=== PATIENT | female | born 1990 | race Two or more races ===

== ENCOUNTER 2025-06-15 20:01 | Emergency (ER) | payer MEDICAID, OTHER ==
[~2025-06-15] VITALS: Ht 167.6 cm; Wt 104.0 kg
[2025-06-15] MEDS ORDERED: IBUP-1456 PO (23:37)
[2025-06-15] MEDS ORDERED: AUG875T PO (23:37)
--- NOTE | 2025-06-15 23:40 | ED.PDOC ---
Eye-HPI HPI Comments C/O 08/21 PAIN TO LOWER LEFT SIDE OF MOUTH D/T BROKEN TOOTH AND POSSIBLE INFECTION. PT A&OX4, VSS, RR EVEN AND UNLABORED ON RA. Chief Complaint: Tooth Pain Time Seen by MD: 20:08 Reviewed Notes: Nurses Notes, Medications, Allergies Allergies: Coded Allergies: NO KNOWN ALLERGIES (Unverified , 06/15/25) Information Source: Patient Mode of Arrival: Ambulatory Constitutional: denies: chills, diaphoresis, fatigue, fever, malaise, sweats, weakness, others EENTM: reports: others (LEFT LOWER TOOTH DENTAL PAIN); denies: blurred vision, double vision, ear bleeding, ear discharge, ear drainage, ear pain, ear ringing, eye pain, eye redness, hearing loss, mouth pain, mouth swelling, nasal discharge, nose bleeding, nose congestion, nose pain, photophobia, tearing, th roat pain, throat swelling, voice changes Respiratory: denies: cough, hemoptysis, orthopnea, SOB at rest, shortness of breath, SOB with excertion, stridor, wheezing, others Cardiovascular: denies: chest pain, dizzy spells, diaphoresis, Dyspnea on exertion, edema, irregular heart beat, left arm pain, lightheadedness, palpitations, PND, syncope, others Gastrointestinal: denies: abdomen distended, abdominal pain, blood streaked bowels, constipated, diarrhea, dysphagia, difficulty swallowing, hematemesis, melena, nausea, poor appetite, poor fluid intake, rectal bleeding, rectal pain, vomiting, others Genitourinary: denies: abnormal vagina bleeding, burning, dyspareunia, dysuria, flank pain, frequency, hematuria, incontinence, pain, , vagina discharge, urgency, others Neurological: denies: dizziness, fainting, headache, left sided numbness, left sided weakness, numbness, paresthesia, pre-existing deficit, right sided numbness, right sided weakness, seizure, speech problems, tingling, tremors, weakness, others Musculoskeletal: denies: back pain, gout, joint pain, joint swelling, muscle pain, muscle stiffness, neck pain, others Integumetry: denies: bruises, change in color, change in hair/nails, dryness, laceration, lesions, lumps, rash, wounds, others Allergic/Immunocompromised: denies: Difficulty Healing, Frequent Infections, Hives, Itching, others Hematologic/Lymphatic: denies: anemia, blood clots, easy bleeding, easy bruising, swollen glands, others Endocrine: denies: excessive hunger, excessive sweating, excessive thirst, excessive urination, flushing, intolerance to cold, intolerance to heat, unexplained weight gain, unexplained weight loss, others Psychiatric: denies: anxiety, bipolar disorder, depression, hopeless, panic disorder, schizophrenia, sleepless, suicidal, others Physical Exam General Appearance: No Apparent Distress, Normal HEENT: Pharynx Normal, TMs Normal, Other (TOOTH NUMBER 36 LEFT LOWER JAW CRACKED WITH NOTED MODERATE DECAY NO NOTED EXTERNAL VISIBLE ABSCESS OR DRAINAGE) Neck: Full Range of Motion, Non-Tender Respiratory: Lungs Clear, No Respiratory Distress, Normal Breath Sounds Cardiovascular: No Murmur, Normal Peripheral Pulses, Regular Rate/Rhythm Breast Exam: Deferred Gastrointestinal: Non Tender, Soft Genitalia: Deferred Pelvic: Deferred Rectal: Deferred Extremities: Normal range of motion Musculoskeletal : Apperance: Normal Neurologic: Alert, No Motor Deficits, Normal Affect, Normal Mood, No Sensory Deficits Cerebellar Function: Normal Reflexes: NOT DONE Skin: Dry, Normal Color, Warm Lymphatic: No Adenopathy Was a procedure done? Was a procedure done?: No EENT DIFF Eye: N/A Sore Throat: Jordi's Angina X-Ray, Labs, Meds, VS Vital Signs Date Time Temp Pulse Resp B/P (MAP) Pulse Ox O2 Delivery O2 Flow Rate FiO2 06/15/25 20:05 98.1 72 20 118/80 96 98.1 X-Ray, Labs, Meds, VS Comment PATIENT GIVEN ROCEPHIN A 1000 MG IM TORADOL 60 MG IM NORCO 5 MG P.O. AND HURRICAINE SPRAY. REPORTS IMPROVEMENT IN PAIN REQUESTING DISCHARGE AT THIS TIME. SCRIPT TRIAL OF AUGMENTIN AND IBUPROFEN ADVISED TAKE MEDICATIONS PRESCRIBED SIDE EFFECTS DISCUSSED. ADVISED TO CALL 1ST THING IN THE MORNING DENTAL AND SCHEDULE AN APPOINTMENT FOR RESOLUTION. ADVISED ON ER RETURN PRECAUTIONS PATIENT INDICATES UNDERSTANDING AND AGREES WITH DISCHARGE PLAN OF CARE. Time of 1ST Reevaluation: 23:00 Reevaluation 1ST: Unchanged Time of 2ND Reevaluation: 23:37 Reevaluation 2ND: Improved Patient Education/Counseling: Diagnosis, Treatment, Prognosis, Need For Follow Up Family Education/Counseling: Diagnosis, Treatment, Prognosis, Need For Follow Up SEPSIS Sepsis Screen Date sepsis recognized/suspect: Jun 15, 2025 Time Sepsis recognized/suspect: 2008 Recent Procedure: No On Antibiotic Therapy: No Respiratory Rate >20: No Heart Rate >90: No Temp<36 C (96.8 F) or >38.3 C: No SBP <90 or MAP <65 mmHG: No New Acute Mental Status Change: No Is the patient on CPAP, BIPAP,: No Physician Orders Ceftriaxone Sodium (Rocephin) (06/15/25 23:45) Ketorolac Injection (Toradol Injection) (06/15/25 23:45) Hydrocodone-Acet 5/325mg Tab (Vesper 5/32 (06/15/25 23:45) Benzocaine (Dental) [place] (Hurricaine Sp (06/15/25 23:45) Vital Signs Date Time Temp Pulse Resp B/P (MAP) Pulse Ox O2 Delivery O2 Flow Rate FiO2 06/15/25 20:05 98.1 72 20 118/80 96 98.1 Departure 1 Departure Time of Disposition: 23:36 Impression: Primary Impression: Dental infection Disposition: HOME / SELF CARE / HOMELESS Condition: Stable e-Prescriptions Ibuprofen (Ibuprofen) 800 Mg Tab 1 TAB PO Q8HP PRN for 5 Days, #15 TAB Prov: GREGORY KAPLAN 06/15/25 Amoxicillin & Pot Clavulanate (AUGMENTIN TABLET) 875 Mg Tb 875 MG PO BID for 7 Days, #14 TAB Prov: GREGORY KAPLAN 06/15/25 Discharged With: Spouse Critical Care Note Critical Care Time?: No Stability Stability form required: No GREGORY KAPLAN Jun 15, 2025 23:40
[2025-06-15 23:46] VITALS: BP 114/82; TEMP 98.5
[2025-06-16 00:16] VITALS: PULSE 71; RESP 14; O2SAT 97
[2025-06-16] MEDS: KETOROLAC TROMETH 60MG/2ML VIAL IM ONE (00:23)
[2025-06-16] MEDS: cefTRIAXone SOD 1,000 MG VL IM ONE (00:23)
[2025-06-16] MEDS: HYDROcodone-ACET 5/325MG TAB PO ONE (00:23)
[2025-06-16] MEDS: BENZOCAINE (DENTAL) 20 % SPRAY 60ML MT ONE (00:24)
[2025-06-16] MEDS: LIDOCAINE 1% HCL (LOCAL ANESTH.) INJ 20ML MDV IJ ONE (00:26)
== END 2025-06-16 00:38 | disposition home or self-care (01) ==
LOC: ER 20:01
DX: K04.7 Periapical abscess without sinus (principal)
CPT/HCPCS: 96372; 99284; J0696; J1885; J2003

== ENCOUNTER 2025-08-25 14:16 | Emergency (ER) | payer MEDICAID ==
[~2025-08-25] VITALS: Ht 167.6 cm; Wt 100.0 kg
[2025-08-25 14:22] VITALS: BP 126/78; RESP 18; TEMP 98.4; O2SAT 99
[2025-08-25 14:52] LABS: Chloride 106 mmol/L (98-107); Potassium 3.7 mmol/L (3.5-5.1); Sodium 140 mmol/L (136-145)
[2025-08-25 14:53] LABS: Anion Gap 13 (5-15); Calcium 9.5 mg/dL (8.7-10.4); Carbon Dioxide 21 mmol/L (20-31); Hematocrit 35.9 % (36.0-46.0); Hemoglobin 11.4 g/dL (12.2-16.2); Mean Corpuscular Hemoglobin 23.8 pg (28.0-32.0); Mean Corpuscular Volume 75.2 fL (80.0-100.0); Nucleated Red Blood Cells % 0.0 %
--- NOTE | 2025-08-25 14:56 | ED.PDOC ---
HPI Comments 34 y/o F, BIBA, with PMHx of anxiety and panic attacks presents to the ED for CC of chest pain. Patient states, she has been experiencing right-side chest pain that radiates to both sides of her chest sudden onset, today (08/25/25). Patient relays, to have further associated symptoms of nausea; endorses relief with Zofran administered by EMS in the field. Patient describes chest pain to be "burning" in nature. At this time patient c/o 6/10 pain. Patient denies palpitations, dizziness, shortness of breath, numbness, or weakness. No other symptoms or modifying factors are present at this time. Chief Complaint: Chest Pain Time Seen by MD: 14:40 Reviewed Notes: Nurses Notes, Auto Salvage Worker Notes, Medications, Allergies Allergies: Coded Allergies: NO KNOWN ALLERGIES (Unverified , 06/15/25) Home Meds Active Scripts Ciprofloxacin Hcl (Cipro) 500 Mg Tab, 1 TAB PO BID, #14 TAB Prov:CONCEPCIÓN ABREU MD 08/25/25 Information Source: Patient, Emergency Med Personnel Mode of Arrival: EMS Severity: Moderate Timing: Minutes Duration: Since onset Prehospital treatment: None Location: Chest (R) Quality: Burning Onset: At Rest Cardiac Risk Factors: Smoker PE Risk Factors: None History of: None Associated Signs and Symptoms: None Past Medical History PAST MEDICAL HISTORY: Anxiety Surgical History: Denies all surgeries EMERGENCY SPECIALIST History: Denies all EMERGENCY SPECIALIST Hx Family History Family History: Unknown Social History Smoker: Non-Smoker Alcohol: Occasionally Drugs: Marijuana Lives In: Home Constitutional: denies: chills, diaphoresis, fatigue, fever, malaise, sweats, weakness, others EENTM: denies: blurred vision, double vision, ear bleeding, ear discharge, ear drainage, ear pain, ear ringing, eye pain, eye redness, hearing loss, mouth pain, mouth swelling, nasal discharge, nose bleeding, nose congestion, nose pain, photophobia, tearing, throat pain, throat swelling, voice changes, others Respiratory: denies: cough, hemoptysis, orthopnea, SOB at rest, shortness of breath, SOB with excertion, stridor, wheezing, others Cardiovascular: reports: chest pain; denies: dizzy spells, diaphoresis, Dyspnea on exertion, edema, irregular heart beat, left arm pain, lightheadedness, palpitations, PND, syncope, others Gastrointestinal: denies: abdomen distended, abdominal pain, blood streaked bowels, constipated, diarrhea, dysphagia, difficulty swallowing, hematemesis, melena, nausea, poor appetite, poor fluid intake, rectal bleeding, rectal pain, vomiting, others Genitourinary: denies: abnormal vagina bleeding, burning, dyspareunia, dysuria, flank pain, frequency, hematuria, incontinence, pain, , vagina discharge, urgency, others Neurological: denies: dizziness, fainting, headache, left sided numbness, left sided weakness, numbness, paresthesia, pre-existing deficit, right sided numbness, right sided weakness, seizure, speech problems, tingling, tremors, weakness, others Musculoskeletal: denies: back pain, gout, joint pain, joint swelling, muscle pain, muscle stiffness, neck pain, others Integumetry: denies: bruises, change in color, change in hair/nails, dryness, laceration, lesions, lumps, rash, wounds, others Allergic/Immunocompromised: denies: Difficulty Healing, Frequent Infections, Hives, Itching, others Hematologic/Lymphatic: denies: anemia, blood clots, easy bleeding, easy bruising, swollen glands, others Endocrine: denies: excessive hunger, excessive sweating, excessive thirst, excessive urination, flushing, intolerance to cold, intolerance to heat, unexplained weight gain, unexplained weight loss, others Psychiatric: denies: anxiety, bipolar disorder, depression, hopeless, panic disorder, schizophrenia, sleepless, suicidal, others All Other Systems: Reviewed and Negative Physical Exam General Appearance: No Apparent Distress HEENT: Normal ENT Inspection, Pharynx Normal, TMs Normal Neck: Full Range of Motion, Non-Tender, Normal, Normal Inspection Respiratory: Chest Non-Tender, Lungs Clear, No Accessory Muscle Use, No Respiratory Distress, Normal Breath Sounds Cardiovascular: No Edema, No JVD, No Murmur, No Gallop, Normal Peripheral Pulses, Regular Rate/Rhythm Breast Exam: Deferred Gastrointestinal: No Organomegaly, Non Tender, No Pulsatile Mass, Normal Bowel Sounds, Soft Genitalia: Deferred Pelvic: Deferred Rectal: Deferred Extremities: No calf tenderness, Normal capillary refill, Normal inspection, Normal range of motion, Non-tender, No pedal edema Musculoskeletal : Apperance: Normal Neurologic: Alert, gas furnace installer II-XII nml as Tested, No Motor Deficits, Normal Affect, Normal Mood, No Sensory Deficits Cerebellar Function: Normal Reflexes: Normal Skin: Dry, Normal Color, Warm Lymphatic: No Adenopathy EKG EKG : Pulse Rate (adult): 62 [place]: Normal Cardiac Rhythm: NSR Block: None Hypertrophy: None ST: Normal Was a procedure done? Was a procedure done?: No CP Differential Dx Differential Diagnosis: Anxiety / Panic Attack Differential Diagnosis: Angina, Chest Wall Pain, Costochondritis, Esophageal reflux/spasm, Gastritis X-Ray, Labs, Meds, VS Vital Signs Date Time Temp Pulse Resp B/P (MAP) Pulse Ox O2 Delivery O2 Flow Rate FiO2 08/25/25 15:35 64 08/25/25 14:56 62 08/25/25 14:22 98.4 64 18 126/78 99 98.4 08/25/25 14:21 62 Lab Test 08/25/25 15:33 08/25/25 14:38 08/25/25 14:31 Range/Units Troponin I High Sensitivity < 3 L < 3 L </=34 ng/L Urine Color Yellow Yellow Urine Clarity Clear Clear Urine pH 5.5 5.0-9.0 Urine Specific [place] 1.027 1.001-1.035 Urine Protein Negative Negative Urine Ketones 2+ H Negative Urine Blood Trace H Negative /uL Urine Nitrite Negative Negative Urine Bilirubin Negative Negative Urine Urobilinogen Normal Negative mg/dL Urine Leukocyte Esterase 3+ Negative /uL Urine RBC 4 0 - 4 /hpf Urine Microscopic WBC 14 H 0-5 /HPF Urine Squamous Epithelial Cells Few <5 /hpf Urine Bacteria None seen None Seen /hpf Urine Mucus Few None Seen Urine Glucose Normal Normal mg/dL Urine Test Negative Negative White Blood Count 9.3 4.4-10.8 10^3/uL Red Blood Count 4.78 4.0-5.20 10^6/uL Hemoglobin 11.4 L 12.2-16.2 g/dL Hematocrit 35.9 L 36.0-46.0 % Mean Corpuscular Volume 75.2 L 80.0-100.0 fL Mean Corpuscular Hemoglobin 23.8 L 28.0-32.0 pg Mean Corpuscular Hemoglobin Concent 31.6 L 32.0-36.0 g/dL Red Cell Distribution Width 17.3 H 11.8-14.3 % Platelet Count 350 140-450 10^3/uL Mean Platelet Volume 7.8 6.9-10.8 fL Neutrophils (%) (Auto) 61.4 37.0-80.0 % Lymphocytes (%) (Auto) 29.3 10.0-50.0 % Monocytes (%) (Auto) 5.2 0.0-12.0 % Eosinophils (%) (Auto) 3.0 0.0-7.0 % Basophils (%) (Auto) 1.1 0.0-2.0 % Neutrophils # (Auto) 5.7 1.6-8.6 10 ^3/uL Lymphocytes # (Auto) 2.7 0.4-5.4 10 ^3/uL Monocytes # (Auto) 0.5 0-1.3 10 ^3/uL Eosinophils # (Auto) 0.3 0-0.8 10 ^3/uL Basophils # (Auto) 0.1 0-0.2 10 ^3/uL Nucleated Red Blood Cells 0.0 % Sodium Level 140 136-145 mmol/L Potassium Level 3.7 3.5-5.1 mmol/L Chloride Level 106 98-107 mmol/L Carbon Dioxide Level 21 20-31 mmol/L Anion Gap 13 5-15 Blood Urea Nitrogen 17 9-23 mg/dL Creatinine 0.71 0.550-1.02 mg/dL Glomerular Filtration Rate Calc 116 >90 mL/min BUN/Creatinine Ratio 23.9 H 10.0-20.0 Serum Glucose 89 74-106 mg/dL Calcium Level 9.5 8.7-10.4 mg/dL At this time the CBC shows anemia with a hemoglobin of 11.4 and hematocrit 35.9 The chemistry panel is within normal limits The urine test is positive for UTI The patient's troponin level x2 is negative The patient is being discharged at this time The patient will follow up with the primary care doctor The patient's diagnosis is anxiety as well as UTI The chest x-ray is negative Images Reviewed?: Images reviewed and evaluated by me Time of 1ST Reevaluation: 15:10 Reevaluation 1ST: Unchanged Time of 2ND Reevaluation: 16:43 Reevaluation 2ND: Improved Patient Education/Counseling: Diagnosis, Treatment, Prognosis, Need For Follow Up Family Education/Counseling: No Family Present SEPSIS Sepsis Screen Date sepsis recognized/suspect: Aug 25, 2025 Time Sepsis recognized/suspect: 1417 Recent Procedure: No On Antibiotic Therapy: No Respiratory Rate >20: No Heart Rate >90: No Temp<36 C (96.8 F) or >38.3 C: No SBP <90 or MAP <65 mmHG: No New Acute Mental Status Change: No Is the patient on CPAP, BIPAP,: No Physician Orders Electrocardigram (08/25/25 14:24) Electrocardigram (08/25/25 15:24) Electrocardigram (08/25/25 17:24) Chest Two Views Routine (08/25/25 14:38) Vital Signs Date Time Temp Pulse Resp B/P (MAP) Pulse Ox O2 Delivery O2 Flow Rate FiO2 08/25/25 15:35 64 08/25/25 14:56 62 08/25/25 14:22 98.4 64 18 126/78 99 98.4 08/25/25 14:21 62 Laboratory Tests Test 08/25/25 14:31 White Blood Count 9.3 10^3/uL (4.4-10.8) Departure 1 Departure Time of Disposition: 16:42 Impression: Primary Impression: UTI (urinary tract infection) Qualified Codes: N30.00 - Acute cystitis without hematuria Additional Impression: Anxiety Disposition: 01 HOME / SELF CARE / HOMELESS Condition: Fair e-Prescriptions Ciprofloxacin Hcl (Cipro) 500 Mg Tab 1 TAB PO BID, #14 TAB Prov: CONCEPCIÓN ABREU MD 08/25/25 Discharged With: Self Critical Care Note Critical Care Time?: No Stability Stability form required: No Heart Score Heart Score: Heart Score Response (Comments) Value History N/A 0 EKG N/A 0 Age N/A 0 Risk Factors N/A 0 Troponin N/A 0 Total 0 I personally scribed for CONCEPCIÓN ABREU MD ([email or web address]) on 08/25/25 at 14:56. Electronically submitted by Fe Page ([email or web address]). CONCEPCIÓN ABREU MD Aug 25, 2025 14:56
[2025-08-25 14:58] LABS: BUN/Creatinine Ratio 23.9 (10.0-20.0); Blood Urea Nitrogen 17 mg/dL (9-23); Glucose 89 mg/dL (74-106)
[2025-08-25 15:28] LABS: Urine Protein, UAD Negative (Negative)
[2025-08-25 15:35] VITALS: PULSE 64
--- NOTE | 2025-08-25 16:09 | DVH ---
CHEST RADIOGRAPH Indication: cp Technique: XY CHEST TWO VIEWS ROUTINE Comparison: None FINDINGS: The cardiac silhouette is unremarkable. The lungs demonstrate no pulmonary airspace consolidation. Th e pulmonary vasculature is unremarkable. There is no pleural effusion. There is no pneumothorax. Aor tic atherosclerotic disease. IMPRESSION: No pulmonary airspace consolidation.
[2025-08-25] MEDS ORDERED: CIPR-173 PO (16:41)
--- NOTE | 2025-08-26 08:56 | ECG ---
[facility] Test Date: 2025-08-25 Test Time: 14:21:29 Pat Name: GREGORIO VAZQUEZ Department: [facility] ED Patient ID: [id number] Room: Gender: F Strap Stitcher: MINDI : 1990 Requested By: CONCEPCIÓN ABREU Order Number: [id number] Reading MD: Jone Cox Measurements Intervals [place] Rate: 62 P: 40 [place]: 181 QRS: 53 QRSD: 71 T: 35 QT: 397 QTc: 404 Interpretive Statements Pacemaker spikes or artifacts Sinus rhythm Electronically Signed On 08-26-2025 9:05:51 PDT by Jone Cox Please click the below link to view image of tracing.
--- NOTE | 2025-08-27 07:01 | ECG ---
[facility] Test Date: 2025-08-25 Test Time: 15:35:57 Pat Name: GREGORIO VAZQUEZ Department: ED Room: Gender: F Boiler Testing Technician: jorge : 1990 Requested By: CONCEPCIÓN ABREU Order Number: [id number] Reading MD: Measurements Intervals [place] Rate: 64 P: 25 [place]: 175 QRS: 55 QRSD: 79 T: 42 QT: 399 QTc: 412 Interpretive Statements Sinus rhythm Consider left atrial enlargement Baseline wander in lead(s) I,aVR Please click the below link to view image of tracing.
--- NOTE | 2025-08-27 07:01 | ECG ---
[facility] Test Date: 2025-08-25 Test Time: 17:26:49 Pat Name: GREGORIO VAZQUEZ Department: ED Room: Gender: F Zone Supervisor Firearms: jorge : 1990 Requested By: CONCEPCIÓN ABREU Order Number: [id number] Reading MD: Measurements Intervals [place] Rate: 65 P: 25 [place]: 178 QRS: 59 QRSD: 81 T: 44 QT: 398 QTc: 414 Interpretive Statements Pediatric ECG interpretation Sinus bradycardia Prolonged [place] interval Borderline left axis deviation Low voltage, precordial leads Please click the below link to view image of tracing.
== END 2025-08-25 18:06 | disposition home or self-care (01) ==
LOC: EDBD 14:16 → ER 14:16
DX: N39.0 Urinary tract infection, site not specified (principal); F41.9 Anxiety disorder, unspecified; Z95.0 Presence of cardiac pacemaker
CPT/HCPCS: 36415; 71046; 80048; 81001; 81025; 84484; 85025; 93005